=== PATIENT | female | born 1940 | race Caucasian/White ===

== ENCOUNTER 2017-05-25 12:01 | Outpatient (CLI) | payer OTHER | END 2017-05-25 18:38 | disposition home or self-care (01) | LOC: SMA 12:01 | PROVIDERS: ATTEND Obstetrics & Gynecology Gynecology | DX: Z12.31 Encounter for screening mammogram for malignant neoplasm of breast (principal) | CPT/HCPCS: G0202 ==

== ENCOUNTER 2019-11-29 08:23 | Outpatient (CLI) | payer OTHER | END 2019-11-29 20:17 | disposition home or self-care (01) | LOC: SMA 08:23 | PROVIDERS: ATTEND Obstetrics & Gynecology Gynecology | DX: Z12.31 Encounter for screening mammogram for malignant neoplasm of breast (principal); N64.89 Other specified disorders of breast | CPT/HCPCS: 77067 ==